=== PATIENT | male | born 2000 | race Two or more races ===

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

== ENCOUNTER 2021-04-16 19:27 | Emergency (ER) | payer OTHER ==
[2021-04-16 19:35] VITALS: BMI 39.1
[2021-04-16] MEDS ORDERED: ACETAMINOPHEN 1000 MG/100 ML VIAL IVPB ONE (20:08)
[2021-04-16] MEDS ORDERED: ONDANSETRON 4 MG/2 ML VIAL IVPUSH ONE (20:08)
[2021-04-16] MEDS ORDERED: SODIUM CHLORIDE 1,000 ML IV STA (20:08)
[2021-04-16] MEDS ORDERED: ACETAMINOPHEN INJECTION 100 ML IVPB ONE (20:29)
[2021-04-16] MEDS ORDERED: ONDANSETRON 4 MG/2 ML VIAL ONE (20:45)
[2021-04-16 20:46] LABS: PH,URINE 6.5 (5.0-8.0); URINE APPEARANCE CLEAR; URINE BILIRUBIN NEGATIVE (NEGATIVE); URINE COLOR YELLOW; URINE GLUCOSE (UA) NEGATIVE (NEGATIVE); URINE KETONE NEGATIVE (NEGATIVE); URINE LEUK ESTERASE NEGATIVE (NEGATIVE); URINE NITRITE NEGATIVE (NEGATIVE); URINE PROTEIN NEGATIVE (NEGATIVE); URINE UROBILINOGEN 0.2 mg/dL (0.2-1.0)
[2021-04-16 20:47] LABS: EOS % 1.4 % (0-4.5); HEMATOCRIT 42.9 % (35.4-49); HEMOGLOBIN 15.2 GM/dL (11.7-16.9); LYMPH % 10.7 % (8-40); MCHC 35.4 g/dl (32.0-35.9); MEAN CELL VOLUME 84.7 fl (80-96); MEAN PLT VOLUME 8.8 fl (7.5-11.1); NEUT % 81.9 % (42.8-82.8); PLATELET COUNT 222 10^3/uL (134-434); RBC 5.07 M/mm3 (4.00-5.60); WHITE BLOOD COUNT 14.8 K/mm3 (4.0-10.0)
[2021-04-16 21:06] LABS: ALBUMIN 3.9 g/dl (3.4-5.0); BLOOD UREA NITROGEN 10.7 mg/dL (7-18); CALCIUM 9.7 mg/dL (8.5-10.1)
[2021-04-16 21:09] LABS: CREATININE 0.9 mg/dL (0.55-1.3)
[2021-04-16 21:11] LABS: BILIRUBIN,TOTAL 0.6 mg/dL (0.2-1); TOT PROT 8.4 g/dl (6.4-8.2)
[2021-04-16 23:59] VITALS: BP 125/79; PULSE 91; TEMP 97.7
== END 2021-04-17 | disposition home or self-care (01) ==
LOC: JER 19:27
PROC: 3E0333Z Introduction of Anti-inflammatory into Peripheral Vein, Percutaneous Approach (ICD-10-PCS; principal; 2021-04-16)
PROC: 3E033GC Introduction of Other Therapeutic Substance into Peripheral Vein, Percutaneous Approach (ICD-10-PCS; 2021-04-16)
PROC: 3E0337Z Introduction of Electrolytic and Water Balance Substance into Peripheral Vein, Percutaneous Approach (ICD-10-PCS; 2021-04-16)
DX: I88.0 Nonspecific mesenteric lymphadenitis (principal); R10.31 Right lower quadrant pain
CPT/HCPCS: 36415; 74177-TC; 80053; 81003; 85025; 99285-25; J0131

== ENCOUNTER 2021-07-25 20:30 | Emergency (ER) | payer OTHER ==
[2021-07-25 20:37] VITALS: BP 109/74; PULSE 96; TEMP 97.8; BMI 34.4
[2021-07-25] MEDS ORDERED: ONDANSETRON 4 MG TABLET PO ONE ×2 (21:18→21:39)
== END 2021-07-25 22:12 | disposition home or self-care (01) ==
LOC: JER 20:30
DX: R11.2 Nausea with vomiting, unspecified (principal)
CPT/HCPCS: 99283-25

== ENCOUNTER 2021-08-13 21:20 | Emergency (ER) | payer OTHER ==
[2021-08-13 21:24] VITALS: BP 137/88; PULSE 112; TEMP 97.5; BMI 34.1
[2021-08-13] MEDS ORDERED: SODIUM CHLORIDE 0.9% 500 ML INFUS.BAG IV ONE (23:47)
[2021-08-14 00:55] LABS: BASO % 0.6 % (0-2.0); EOS % 2.9 % (0-4.5); HEMATOCRIT 43.5 % (35.4-49); HEMOGLOBIN 15.6 GM/dL (11.7-16.9); MCH 30.3 pg (25.7-33.7); MCHC 35.8 g/dl (32.0-35.9); MEAN CELL VOLUME 84.6 fl (80-96); MEAN PLT VOLUME 8.6 fl (7.5-11.1); MONO % 5.3 % (3.8-10.2); NEUT % 61.2 % (42.8-82.8); PLATELET COUNT 233 10^3/uL (134-434); RBC 5.14 M/mm3 (4.00-5.60); RDW 13.1 % (11.9-15.9)
[2021-08-14 01:03] LABS: INR 1.11 (0.83-1.09); PROTHROMBIN TIME (PATIENT) 12.8 SEC (9.7-13.0)
[2021-08-14 01:16] LABS: CALCIUM 9.2 mg/dL (8.5-10.1)
[2021-08-14 01:20] LABS: CREATININE 0.9 mg/dL (0.55-1.3)
[2021-08-14 01:22] LABS: BILIRUBIN,TOTAL 0.7 mg/dL (0.2-1); TOT PROT 8.6 g/dl (6.4-8.2)
[2021-08-14] MEDS ORDERED: ONDANSETRON 4 MG/2 ML VIAL IVPB ONE (01:57)
[2021-08-14] MEDS ORDERED: ONDANSETRON 4 MG/2 ML VIAL ONE (02:16)
== END 2021-08-14 06:30 | disposition home or self-care (01) ==
LOC: JER 21:20
PROC: 3E033GC Introduction of Other Therapeutic Substance into Peripheral Vein, Percutaneous Approach (ICD-10-PCS; principal; 2021-08-13)
DX: R11.11 Vomiting without nausea (principal)
CPT/HCPCS: 36415; 71046-TC-FY; 74018-TC-FY; 80053; 83690; 85025; 85610; 85730; 96374; 99285-25

== ENCOUNTER 2021-11-15 18:22 | Emergency (ER) | payer OTHER ==
[2021-11-15 18:39] VITALS: BP 126/75; PULSE 98; TEMP 98.6; BMI 34.7
[2021-11-15] MEDS ORDERED: SODIUM CHLORIDE 1,000 ML IV STA (22:38)
[2021-11-15] MEDS ORDERED: ONDANSETRON 4 MG/2 ML VIAL IVPUSH ONE (22:38)
[2021-11-15] MEDS ORDERED: ONDANSETRON 4 MG/2 ML VIAL ONE (22:50)
[2021-11-15 23:36] LABS: BASO % 0.7 % (0-2.0); HEMATOCRIT 44.6 % (35.4-49); HEMOGLOBIN 15.9 GM/dL (11.7-16.9); LYMPH % 17.2 % (8-40); MCH 30.1 pg (25.7-33.7); MCHC 35.5 g/dl (32.0-35.9); MEAN CELL VOLUME 84.9 fl (80-96); MEAN PLT VOLUME 9.1 fl (7.5-11.1); MONO % 4.5 % (3.8-10.2); NEUT % 76.6 % (42.8-82.8); PLATELET COUNT 240 10^3/uL (134-434); RBC 5.26 M/mm3 (4.00-5.60); RDW 12.9 % (11.9-15.9); WHITE BLOOD COUNT 11.6 K/mm3 (4.0-10.0)
[2021-11-16 00:06] LABS: ALBUMIN 4.2 g/dl (3.4-5.0); BLOOD UREA NITROGEN 12.6 mg/dL (7-18); CALCIUM 9.8 mg/dL (8.5-10.1)
[2021-11-16 00:09] LABS: CREATININE 0.8 mg/dL (0.55-1.3)
[2021-11-16 00:11] LABS: BILIRUBIN,TOTAL 0.8 mg/dL (0.2-1); TOT PROT 8.8 g/dl (6.4-8.2)
== END 2021-11-16 01:29 | disposition home or self-care (01) ==
LOC: JER 18:22
PROC: 3E033GC Introduction of Other Therapeutic Substance into Peripheral Vein, Percutaneous Approach (ICD-10-PCS; principal; 2021-11-15)
PROC: 3E0337Z Introduction of Electrolytic and Water Balance Substance into Peripheral Vein, Percutaneous Approach (ICD-10-PCS; 2021-11-15)
DX: R11.2 Nausea with vomiting, unspecified (principal)
CPT/HCPCS: 36415; 80053; 83690; 85025; 99284-25; C9803-CS; U0003; U0005